=== PATIENT | female | born 1990 | race African-American/Black ===

== ENCOUNTER 2025-05-02 06:45 | Emergency (ER) | payer OTHER ==
[~2025-05-02] VITALS: Ht 160 cm; Wt 71.0 kg
[2025-05-02 06:50] VITALS: TEMP 36.9; O2SAT 100
[2025-05-02 08:01] LABS: BASOPHILS % 0.3 % (0.0-2.0); EOSINOPHILS % 0.8 % (0.0-5.0); HEMATOCRIT. 43.5 % (36.0-48.0); HEMOGLOBIN. 14.4 g/dL (12.0-16.0); LYMPHOCYTES % 8.8 % (20.0-50.0); MEAN PLATELET VOLUME 7.3 fl (7.4-10.4); MONOCYTES % 4.6 % (2.0-8.0); NEUTROPHILS % 85.5 % (40.0-76.0); PLATELET 332 x1000/uL (130-400); RED BLOOD CELL COUNT 4.70 mill/uL (4.2-5.4); RED CELL DISTRIBUTION WIDTH 13.4 % (11.6-14.6)
[2025-05-02 08:15] LABS: CREATININE 1.0 mg/dL (0.6-1.0); UREA NITROGEN BLOOD 8 mg/dL (9-23)
[2025-05-02 08:17] LABS: ASPARTATE AMINOTRANSFERASE 23 IU/L (<34); BILIRUBIN DIRECT < 0.1 mg/dL (<=3.0)
[2025-05-02 08:18] LABS: BILIRUBIN TOTAL 0.3 mg/dL (0.1-1.0); INR 0.9; PROTEIN TOTAL 7.5 g/dL (6.0-8.3)
[2025-05-02 08:30] LABS: HCG SCREEN NEGATIVE
[2025-05-02 08:48] LABS: CLARITY URINE CLEAR (CLEAR); COLOR URINE YELLOW (YELLOW); GLUCOSE URINE NEGATIVE (NEGATIVE); KETONES URINE NEGATIVE (NEGATIVE); LEUKOCYTE ESTERASE URINE NEGATIVE (NEGATIVE); NITRITE URINE NEGATIVE (NEGATIVE); OCCULT BLOOD URINE 3+ (NEGATIVE); PH URINE 5.5 (4.5-8.0); PROTEIN URINE 1+ (NEGATIVE); SPECIFIC GRAVITY URINE 1.023 (1.005-1.030); UROBILINOGEN URINE 0.2 E.U./dL (0.2-1.0)
[2025-05-02 09:11] LABS: *AMPHETAMINES SCREEN URINE NEGATIVE (NEGATIVE); *BARBITURATES SCREEN URINE NEGATIVE (NEGATIVE); *BENZODIAZEPINES SCREEN URINE NEGATIVE (NEGATIVE); *COCAINE SCREEN URINE NEGATIVE (NEGATIVE); CANNABINOID URINE SCREEN NEGATIVE (NEGATIVE); ECSTASY MDMA SCREEN URINE NEGATIVE (NEGATIVE); METHADONE URINE SCREEN NEGATIVE (NEGATIVE); OPIATES URINE SCREEN NEGATIVE (NEGATIVE); PHENCYCLIDINE URINE SCREEN NEGATIVE (NEGATIVE)
[2025-05-02 09:18] LABS: RBC URINE TNTC /hpf (0-2); SQUAMOUS EPITHELIAL CELL URINE 2+ /lpf (RARE/1+); WBC URINE 0-2 /hpf (0-2)
[2025-05-02 09:19] LABS: BACTERIA URINE TRACE
[2025-05-02] MEDS ORDERED: TOPUD PO (09:30)
[2025-05-02 09:45] VITALS: BP 157/91; PULSE 94; RESP 14; O2SAT 100
[2025-05-02] MEDS ORDERED: IOHEXOL-350 100 ML BOTTLE ONE (13:46)
== END 2025-05-02 10:00 | disposition home or self-care (01) ==
LOC: ER 06:45
DX: M79.652 Pain in left thigh (principal); R51.9 Headache, unspecified; Z79.899 Other long term (current) drug therapy; V03.90XA Pedestrian on foot injured in collision with car, pick-up truck or van, unspecified whether traffic or nontraffic accident, initial encounter; Y93.01 Activity, walking, marching and hiking; Y92.410 Unspecified street and highway as the place of occurrence of the external cause; Y99.8 Other external cause status
CPT/HCPCS: 80076; 80305; 80048; 81003; 81025; 80320; 84703; 83690; 85025; 85610; 85730; 86850; 86900; 86901; 36415; 73552; 74174; 71045; 72170; 71275; 70450; 72125; 93005; 99285; Q9967; G0480

== ENCOUNTER 2025-05-27 12:28 | Emergency (ER) | payer OTHER ==
[~2025-05-27] VITALS: Ht 160 cm; Wt 77.0 kg
[~2025-05-27 12:28] MED LIST: TOPUD PO
[2025-05-27 12:32] VITALS: O2SAT 99
[2025-05-27 14:57] LABS: BASOPHILS % 0.4 % (0.0-2.0); EOSINOPHILS % 2.0 % (0.0-5.0); HEMATOCRIT. 36.8 % (36.0-48.0); HEMOGLOBIN. 12.2 g/dL (12.0-16.0); LYMPHOCYTES % 15.0 % (20.0-50.0); MEAN PLATELET VOLUME 7.2 fl (7.4-10.4); MONOCYTES % 6.9 % (2.0-8.0); NEUTROPHILS % 75.7 % (40.0-76.0); PLATELET 352 x1000/uL (130-400); RED BLOOD CELL COUNT 3.99 mill/uL (4.2-5.4); RED CELL DISTRIBUTION WIDTH 12.9 % (11.6-14.6)
[2025-05-27 15:12] LABS: CREATININE 0.9 mg/dL (0.6-1.0); HCG SCREEN NEGATIVE; UREA NITROGEN BLOOD 9 mg/dL (9-23)
[2025-05-27 15:14] LABS: ASPARTATE AMINOTRANSFERASE 21 IU/L (<34); BILIRUBIN DIRECT < 0.1 mg/dL (<=3.0); BILIRUBIN TOTAL 0.3 mg/dL (0.1-1.0)
[2025-05-27 15:15] LABS: PROTEIN TOTAL 7.0 g/dL (6.0-8.3)
[2025-05-27 15:16] LABS: INR 1.0
[2025-05-27 19:22] VITALS: BP 145/89; PULSE 88; RESP 18; TEMP 36.7; O2SAT 98
[2025-05-27] MEDS ORDERED: IOHEXOL-350 100 ML BOTTLE ONE (23:47)
[2025-05-27] MEDS ORDERED: IOHEXOL-300 100 ML BOTTLE ONE (23:48)
== END 2025-05-27 19:25 | disposition left against medical advice (07) ==
LOC: ER 12:28 → EDBEDREQTM 18:47 → EDBEDREQ 18:47 → ER 19:25 → CMPBEDREQ 05-28 07:40
DX: S70.12XA Contusion of left thigh, initial encounter (principal); S80.12XA Contusion of left lower leg, initial encounter; X58.XXXA Exposure to other specified factors, initial encounter; Y93.89 Activity, other specified; Y92.89 Other specified places as the place of occurrence of the external cause; Y99.8 Other external cause status
CPT/HCPCS: 99285; 73701; 80076; 80048; 81025; 84703; 85025; 85610; 36415; 73552; Q9967 ×2